=== PATIENT | male | born 1965 | race Caucasian/White ===

== ENCOUNTER → 2016-12-05 | Outpatient (CLI) | payer BC | END | disposition home or self-care (01) | LOC: YCFC.O 07:32 | DX: R53.83 Other fatigue (principal) ==

== ENCOUNTER → 2016-12-22 | Outpatient (CLI) | payer BC | LOC: RESP 17:00 | DX: R00.8 Other abnormalities of heart beat (principal) ==

== ENCOUNTER → 2017-01-02 | Outpatient (CLI) | payer BC | END | disposition home or self-care (01) | LOC: RESP 14:54 | DX: R00.8 Other abnormalities of heart beat (principal) ==

== ENCOUNTER → 2018-07-08 | Outpatient (CLI) | payer BC ==
--- NOTE | 2018-07-08 11:13 | CT ---
EXAM DESCRIPTION: Abdomen w/wo Contrast: Computed Tomography. CLINICAL HISTORY: LEFT UPPER QUADRANT PAIN COMPARISON: None. TECHNIQUE: Spiral-axial scans at 5.0 x 5.0 mm intervals, from the diaphragms through the upper pelvis, before and after nonionic IV contrast. Water oral contrast. Coronal and sagittal 2.0 mm reconstructions, delayed. 2 mm Delayed axial scans, liver through the upper pelvis. No adverse reactions. DLP 3143.56 mGy-cm. This exam was performed according to our departmental CT dose-optimization program which includes automated exposure control, adjustment of the mA and/or kV according to patient size and/or use of iterative reconstruction technique; to reduce radiation dose to as low as reasonably achievable (ALARA). FINDINGS: Lung bases and pleura: Negative. Liver, stomach, adrenal glands, and spleen: Dilated intrahepatic ducts. No focal lesions or hepatic enlargement. No ascites. Stomach distended by water spleen and adrenal glands negative.. Pancreas/Gallbladder/Ducts: Possible wall thickening gallbladder but no fatty stranding. Common bile duct dilated. Diffuse low-density of the pancreas with no definite mass. No abnormal enhancement or surrounding fatty stranding. Kidneys and Ureters: Unremarkable. Mesentery: No free air or free fluid. No fatty stranding or fascial thickening. Aorta: Negative. Small Bowel: Unremarkable. Terminal Ileum/Cecum: Normal caliber. Appendiceal remnant on the inferior cecum. Colon: Diffuse fecal material and a moderate amount in the included colon. No inflammatory changes. Spine: L5-S1 disc space loss, spondylosis, and vacuum phenomenon. Significant bilateral foraminal narrowing. Abdominal Wall/Back Soft Tissues: Minimal diastases of the umbilicus containing fat but no bowel. IMPRESSION: 1. Dilated intrahepatic ducts. Possible gallbladder wall thickening but no fatty stranding. Common bile duct dilated. Fatty pancreas but no duct dilation. Consider cholelithiasis or cholecystitis with common bile duct obstruction or dilation. Right upper quadrant abdominal ultrasound recommended. 2. Spondylosis L5-S1 with canal narrowing and significant foraminal narrowing. Correlate for radiculopathy. Electronically signed by: Vishnu Zayas MD 07/08/2018 11:10 AM CDT
== END ==
LOC: CT 09:35
PROVIDERS: ATTEND Nurse Practitioner Family
DX: K83.8 Other specified diseases of biliary tract (principal); M47.897 Other spondylosis, lumbosacral region; R10.12 Left upper quadrant pain